=== PATIENT | female | born 1975 | race Caucasian/White ===

== ENCOUNTER 2020-07-29 00:29 | Emergency (ER) | payer OTHER, SELFPAY ==
[~2020-07-29] VITALS: Ht 165.1 cm; Wt 72.3 kg
[2020-07-29 00:31] VITALS: Ht 165.1 cm; Wt 72.3 kg
[2020-07-29 02:32] VITALS: BP 149/93
== END 2020-07-29 02:32 | disposition home or self-care (01) ==
LOC: ED 00:29
DX: U07.1 COVID-19 (principal); J12.89 Other viral pneumonia; E11.9 Type 2 diabetes mellitus without complications